=== PATIENT | male | born 1985 | race Caucasian/White ===

== ENCOUNTER 2017-02-19 18:52 | Emergency (ER) | payer SELFPAY ==
--- NOTE | 2017-02-19 20:14 | DIAGNOSTIC IMAGING REPORT ---
PROCEDURE: XR ANKLE 3 OR 4 VIEWS - LEFT INDICATION: TRAUMA/INJURY TECHNIQUE: Four views of the left ankle. COMPARISON: None. FINDINGS: Normal mineralization. No fractures. Ankle mortise intact. Normal osseous alignment. Dorsal degenerative spurring at the talonavicular articulation. No tibiotalar joint effusion. No suspicious soft-tissue calcification or radiodense foreign bodies. Achilles tendon appears grossly normal. Mild lateral soft tissue thickening. IMPRESSION: 1. Intact left ankle. 2. Mild lateral soft tissue thickening may be cellulitis. Correlate clinically.
--- NOTE | 2017-02-19 20:17 | ED ORDER SUMMARY ---
..... Patient: JERILYN AADMS [facility] VisitID: [id number] [address] [place] [address] 31y, M Registration Date/Time: 02/19/2017 ORDER SHEET Weight: 65.7 kg (stated) Allergies: None GENERAL ORDERS: Ankle 3 or 4V Left Urgent (19:46 02/19/2017 Krystal Mooney) (Ack 19:47 [facility] Log Preparer) (20:28 SRoberts R.N.) Orthopedic Boot (20:16 02/19/2017 Krystal Mooney) (Cancelled: Patient Left21:15 SRoberts R.N.) MEDICATION ORDERS: Toradol IM 60 mg (NOW) (19:45 02/19/2017 Krystal Mooney) (Ack 20:09 SRoberts R.N.) (20:28 SRoberts R.N.) IV FLUIDS: ORDER SHEET NOTES: [Electronically signed by Jesus Cardoso Dr. (20:20 02/19/2017)] [Electronically signed by Aiyana Tang R.N. (21:16 02/19/2017)] [Electronically locked/signed by Aiyana Tang R.N. (21:16 02/19/2017)]
--- NOTE | 2017-02-19 20:17 | ED ORDER SUMMARY ---
..... Patient: JERILYN ADAMS OrderSheet 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 (20:20 02/19/2017)] [Electronically signed by Aiyana Tang R.N. (21:16 02/19/2017)] [Electronically locked/signed by Aiyana Tang R.N. (21:16 02/19/2017)]
--- NOTE | 2017-02-19 20:17 | ED CLINICAL REPORT ---
Clinical Report - Physicians/Mid Levels [facility] [address] [place] [address] 02/19/2017 18:53 [id number] Time Seen: 19:07; initial patient contact. Arrived- By private vehicle. Historian- patient. HISTORY OF PRESENT ILLNESS Chief Complaint: PUNCTURE WOUND TO RIGHT FOOT. The injury happened last night. Occurred on a street. The patient sustained a puncture wound from a clean nail. He was wearing rubber-soled shoes. Patient is experiencing mild pain. No redness, swelling, drainage or fever. REVIEW OF SYSTEMS The patient sustained a laceration. He has no pain on weight bearing. No suspected foreign body. He has had moderate joint pain with swelling, involving the left ankle. PAST HISTORY Negative. Tetanus immunization status is up-to-date. Problems: no known problems. Surgeries: No history of previous surgery. Additional Surgeries: no known surgeries. Medications: None. Allergies: None. SOCIAL HISTORY Current every day smoker. No alcohol use or drug use. ADDITIONAL NOTES The nursing notes have been reviewed with agreement regarding the chief complaint, PMH and patient medications and allergies. PHYSICAL EXAM Vital Signs: 02/19/2017 19:09 BP: 122/72. HR: 94. RR: 18. O2 saturation: 99%. Temp: 97.7 F. Pain level now: 8/10. Have been reviewed as normal. Appearance: Alert. Oriented X3. No acute distress. Eyes: Eyes normal inspection. CVS: Normal heart rate and rhythm. Heart sounds normal. Respiratory: No respiratory distress. Breath sounds normal. Skin: Otherwise negative. Skin warm and dry. Extremities: Distal plantar puncture wound, right foot. No retained foreign material is visible. Mild soft-tissue tenderness present. Mild bony tenderness present in the left lateral ankle. No signs of infection present. Extremities otherwise negative. Neuro, Vascular and Tendons: Sensation intact. Motor intact. Vascular status intact. Tendon function intact. Gait: Limping gait. Neuro: Oriented X 3. LABS, X-RAYS, AND EKG Lt Ankle X-ray: No fracture. Normal alignment. No bony lesion, air in the soft tissue or foreign body. Soft tissues normal. Joint spaces normal. Views: 3 view ankle series. Technique: good. The X-rays were independently viewed by me and interpreted contemporaneously by me. Prior films were not available for comparison. Interpretation time: 20:11. PROGRESS AND PROCEDURES Disposition: Discharged in good and improved condition. Condition: good. CLINICAL IMPRESSION Single superficial plantar puncture wound to the right foot.No foreign body, infection or injury to toenail. Treatment not delayed. Sprain of the left ankle. INSTRUCTIONS Apply ice for 20 minutes four times a day. Don't apply ice directly to skin. Protect wound and keep wound area clean. Change dressing twice daily. You may wash wounds briefly, then dry. Soak in warm soapy water twice daily. Apply bacitracin twice daily. Your Current Medications: CONTINUE TAKING THE FOLLOWING MEDICATIONS: None*. Prescription Medications: Diclofenac 50 mg tablets: take 1 tablet orally every 8 hours as needed for pain or stiffness. Dispense thirty (30). No refill. Follow-up: Screening today revealed the patient's blood pressure to be in the normal range. Follow-up with: [facility], , , [address], , [place], [address] Follow up in about two days. Call for an appointment. (Electronically signed by Jesus Cardoso Dr. 02/19/2017 20:20)
--- NOTE | 2017-02-19 20:17 | ED NURSING NOTES ---
Clinical Report - Nurses [facility] [address] [place] [address] 02/19/2017 18:53 [id number] Triage time 19:07. Acuity: LEVEL 4. Chief Complaint: (RIGHT FOOT PAIN). 19:02/19/17. 19:02/19/17. Alert. No acute distress. ( Pt states he "got a gift from the other side in his right foot, the devil put something in there." Pt states he has left ankle pain.). SEPSIS SCREEN: Sepsis Screen. Negative (no infection suspected/documented). PEARL COMA SCORE: Sidon Coma Scale: 15- eyes open spontaneously (4); best verbal response- oriented x 4 (5); best motor response- obeys commands (6). --19:12 Tre Concepcion R.N. 19:02/19/17. BP: 122/72. HR: 94. RR: 18. O2 saturation: 99% on room air. Temp: 97.7 F (oral). Pain level now: 07/10. --19:12 Tre Concepcion R.N. Weight: 65.7 kg stated. Height/Length: 71 inches Per Patient. BMI: 20.2. --19:07 Tre Concepcion R.N. Medications None. --19:11 Tre Concepcion R.N. Medication/allergy information source: the patient. --19:12 Tre Concepcion R.N. Allergies None. --19:11 Tre Concepcion R.N. History Arrived by private vehicle. Historian: patient. Unaccompanied. Primary physician (NONE). 19:02/19/17. Location of injuries: right foot. ( Painful right foot, left ankle pain). 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 Trauma activation: Pre-hospital notification of patient arrival was not received. PAST MEDICAL HX: Tetanus status: unknown. Immunizations: status is unknown. SOCIAL HX: Current some days light tobacco smoker (cigarette)- less than 1/2 a pack per day. No alcohol use or drug use. No infectious disease exposure. ABUSE ASSESSMENT: No report of abuse. FALL RISK ASSESSMENT: Fall risk assessment completed. No fall risk identified. NUTRITIONAL RISK ASSESSMENT: The nutritional risk assessment revealed no deficiencies. FUNCTIONAL ASSESSMENT: Functional assessment: no impairments noted. LEARNING NEEDS ASSESSMENT: The learning needs assessment revealed no barriers. SKIN INTEGRITY ASSESSMENT: Skin integrity risk assessment completed. No skin integrity risk identified. --19:12 Tre Concepcion R.N. PROBLEMS: no known problems. ADDITIONAL SURGERIES: no known surgeries. Assessment 19:02/19/17. --19:12 Tre Concepcion R.N. Interventions 19:02/19/17. 19:02/19/17. ID and allergy band on patient. To treatment room. --19:12 Tre Concepcion R.N. PHYSICAL ASSESSMENT 19:02/19/17. Ambulatory to room. GENERAL / NEURO / PSYCH: Alert. Oriented X 4. RESPIRATORY: Respirations not labored. CVS: Capillary refill less than 2 seconds. EXTREMITIES: Left ankle: erythema. SKIN: Skin is warm and dry. --19:11 Tre Concepcion R.N. EXTREMITIES: Right foot: (small puncture wound noted on bottom of right foot). --19:13 Tre Concepcion R.N. NURSING PROGRESS NOTES 19:02/19/17. Two patient identifiers checked. Call light placed in reach. Side rails up x 2. Brakes of bed on. --19:12 Tre Concepcion R.N. 19:02/19/17. The plan of care for this patient has been created. Extremity elevated. Neuro-vascular extremity check. Reassurance given. --19:12 Tre Concepcion R.N. 19:02/19/17. Patient ready for evaluation- chart flagged. --19:12 Tre Concepcion R.N. 19:15 02/19/17. Care transferred and report given. --19:15 Tre Concepcion R.N. 20:10 02/19/2017 Toradol (Ketorolac Tromethamine) IM 60 mg given. Given in the left gluteus damon. Allergies verified and confirmed 5 rights. --20:28 Aiyana Tang R.N. DISPOSITION / DISCHARGE 20:25. Condition at departure: improved. ( Patient stated "I'm hungry". Patient given sandwich, and soda.). No learning barriers present. Discharge instructions provided and reviewed with the patient. Patient verbalized understanding. Written instructions provided in Latvian. The patient was discharged home. He left the Emergency Department ambulatory and via bus and with fare provided. Medication list reviewed and validated. --20:28 Aiyana Tang R.N. 20:21 02/19/17. BP: 116/72. HR: 79. RR: 18. O2 saturation: 100%. Temp: deferred. Pain level now: 01/10. 19:09 02/19/17. BP: 122/72. HR: 94. RR: 18. O2 saturation: 99% on room air. Temp: 97.7 F (oral). Pain level now: 8/10. --20:28 Aiyana Tang R.N. Locked/Released at 02/19/2017 21:16 by Aiyana Tang R.N.
--- NOTE | 2017-02-19 20:17 | ED NURSING NOTES ---
Clinical Report - Nurses [facility] [address] [place] [address] 02/19/2017 18:53 [id number] TRI[facility] Triage time 19:07. Acuity: LEVEL 4. Chief Complaint: (RIGHT FOOT PAIN). 19:02/19/17. 19:02/19/17. Alert. No acute distress. ( Pt states he "got a gift from the other side in his right foot, the devil put something in there." Pt states he has left ankle pain.). SEPSIS SCREEN: Sepsis Screen. Negative (no infection suspected/documented). PEARL COMA SCORE: Lambert Coma Scale: 15- eyes open spontaneously (4); best verbal response- oriented x 4 (5); best motor response- obeys commands (6). --19:12 Tre Concepcion R.N. 19:02/19/17. BP: 122/72. HR: 94. RR: 18. O2 saturation: 99% on room air. Temp: 97.7 F (oral). Pain level now: 07/10. --19:12 Tre Concepcion R.N. Weight: 65.7 kg stated. Height/Length: 71 inches Per Patient. BMI: 20.2. --19:07 Tre Concepcion R.N. Medications None. --19:11 Tre Concepcion R.N. Medication/allergy information source: the patient. --19:12 Tre Concepcion R.N. Allergies None. --19:11 Tre Concepcion R.N. History Arrived by private vehicle. Historian: patient. Unaccompanied. Primary physician (NONE). 19:02/19/17. Location of injuries: right foot. ( Painful right foot, left ankle pain). 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 Trauma activation: Pre-hospital notification of patient arrival was not received. PAST MEDICAL HX: Tetanus status: unknown. Immunizations: status is unknown. SOCIAL HX: Current some days light tobacco smoker (cigarette)- less than 1/2 a pack per day. No alcohol use or drug use. No infectious disease exposure. ABUSE ASSESSMENT: No report of abuse. FALL RISK ASSESSMENT: Fall risk assessment completed. No fall risk identified. NUTRITIONAL RISK ASSESSMENT: The nutritional risk assessment revealed no deficiencies. FUNCTIONAL ASSESSMENT: Functional assessment: no impairments noted. LEARNING NEEDS ASSESSMENT: The learning needs assessment revealed no barriers. SKIN INTEGRITY ASSESSMENT: Skin integrity risk assessment completed. No skin integrity risk identified. --19:12 Tre Concepcion R.N. PROBLEMS: no known problems. ADDITIONAL SURGERIES: no known surgeries. Assessment 19:02/19/17. --19:12 Tre Concepcion R.N. Interventions 19:02/19/17. 19:02/19/17. ID and allergy band on patient. To treatment room. --19:12 Tre Concepcion R.N. PHYSICAL ASSESSMENT 19:02/19/17. Ambulatory to room. GENERAL / NEURO / PSYCH: Alert. Oriented X 4. RESPIRATORY: Respirations not labored. CVS: Capillary refill less than 2 seconds. EXTREMITIES: Left ankle: erythema. SKIN: Skin is warm and dry. --19:11 Tre Concepcion R.N. EXTREMITIES: Right foot: (small puncture wound noted on bottom of right foot). --19:13 Tre Concepcion R.N. NURSING PROGRESS NOTES 19:02/19/17. Two patient identifiers checked. Call light placed in reach. Side rails up x 2. Brakes of bed on. --19:12 Tre Concepcion R.N. 19:02/19/17. The plan of care for this patient has been created. Extremity elevated. Neuro-vascular extremity check. Reassurance given. --19:12 Tre Concepcion R.N. 19:02/19/17. Patient ready for evaluation- chart flagged. --19:12 Tre Concepcion R.N. 19:15 02/19/17. Care transferred and report given. --19:15 Tre Concepcion R.N. 20:10 02/19/2017 Toradol (Ketorolac Tromethamine) IM 60 mg given. Given in the left gluteus damon. Allergies verified and confirmed 5 rights. --20:28 Aiyana Tang R.N. DISPOSITION / DISCHARGE 20:25. Condition at departure: improved. ( Patient stated "I'm hungry". Patient given sandwich, and soda.). No learning barriers present. Discharge instructions provided and reviewed with the patient. Patient verbalized understanding. Written instructions provided in Romansh. The patient was discharged home. He left the Emergency Department ambulatory and via bus and with fare provided. Medication list reviewed and validated. --20:28 Aiyana Tnag R.N. 20:21 02/19/17. BP: 116/72. HR: 79. RR: 18. O2 saturation: 100%. Temp: deferred. Pain level now: 01/10. 19:09 02/19/17. BP: 122/72. HR: 94. RR: 18. O2 saturation: 99% on room air. Temp: 97.7 F (oral). Pain level now: 8/10. --20:28 Aiyana Tang R.N. Locked/Released at 02/19/2017 21:16 by Aiyana Tang R.N.
--- NOTE | 2017-02-19 20:17 | ED CLINICAL REPORT ---
Clinical Report - Physicians/Mid Levels [facility] [address] [place] [place] [address] 02/19/2017 18:53 [id number] Time Seen: 19:07; initial patient contact. Arrived- By private vehicle. Historian- patient. HISTORY OF PRESENT ILLNESS Chief Complaint: PUNCTURE WOUND TO RIGHT FOOT. The injury happened last night. Occurred on a street. The patient sustained a puncture wound from a clean nail. He was wearing rubber-soled shoes. Patient is experiencing mild pain. No redness, swelling, drainage or fever. REVIEW OF SYSTEMS The patient sustained a laceration. He has no pain on weight bearing. No suspected foreign body. He has had moderate joint pain with swelling, involving the left ankle. PAST HISTORY Negative. Tetanus immunization status is up-to-date. Problems: no known problems. Surgeries: No history of previous surgery. Additional Surgeries: no known surgeries. Medications: None. Allergies: None. SOCIAL HISTORY Current every day smoker. No alcohol use or drug use. ADDITIONAL NOTES The nursing notes have been reviewed with agreement regarding the chief complaint, PMH and patient medications and allergies. PHYSICAL EXAM Vital Signs: 02/19/2017 19:09 BP: 122/72. HR: 94. RR: 18. O2 saturation: 99%. Temp: 97.7 F. Pain level now: 8/10. Have been reviewed as normal. Appearance: Alert. Oriented X3. No acute distress. Eyes: Eyes normal inspection. CVS: Normal heart rate and rhythm. Heart sounds normal. Respiratory: No respiratory distress. Breath sounds normal. Skin: Otherwise negative. Skin warm and dry. Extremities: Distal plantar puncture wound, right foot. No retained foreign material is visible. Mild soft-tissue tenderness present. Mild bony tenderness present in the left lateral ankle. No signs of infection present. Extremities otherwise negative. Neuro, Vascular and Tendons: Sensation intact. Motor intact. Vascular status intact. Tendon function intact. Gait: Limping gait. Neuro: Oriented X 3. LABS, X-RAYS, AND EKG Lt Ankle X-ray: No fracture. Normal alignment. No bony lesion, air in the soft tissue or foreign body. Soft tissues normal. Joint spaces normal. Views: 3 view ankle series. Technique: good. The X-rays were independently viewed by me and interpreted contemporaneously by me. Prior films were not available for comparison. Interpretation time: 20:11. PROGRESS AND PROCEDURES Disposition: Discharged in good and improved condition. Condition: good. CLINICAL IMPRESSION Single superficial plantar puncture wound to the right foot.No foreign body, infection or injury to toenail. Treatment not delayed. Sprain of the left ankle. INSTRUCTIONS Apply ice for 20 minutes four times a day. Don't apply ice directly to skin. Protect wound and keep wound area clean. Change dressing twice daily. You may wash wounds briefly, then dry. Soak in warm soapy water twice daily. Apply bacitracin twice daily. Your Current Medications: CONTINUE TAKING THE FOLLOWING MEDICATIONS: None*. Prescription Medications: Diclofenac 50 mg tablets: take 1 tablet orally every 8 hours as needed for pain or stiffness. Dispense thirty (30). No refill. Follow-up: Screening today revealed the patient's blood pressure to be in the normal range. Follow-up with: [facility], , , [address], , [place], [address] Follow up in about two days. Call for an appointment. (Electronically signed by Jesus Cardoso Dr. 02/19/2017 20:20)
--- NOTE | 2017-02-19 21:17 | ED DISCHARGE INSTRUCTIONS ---
Patient: JERILYN ADAMS General Instructions [facility] VisitID: [id number] [address] [place] [address] 31y, M Registration Date/Time: 02/19/2017 Single superficial plantar puncture wound to the right foot.No foreign body, infection or injury to toenail. Treatment not delayed. Sprain of the left ankle. INSTRUCTIONS Apply ice for 20 minutes four times a day. Don't apply ice directly to skin. Protect wound and keep wound area clean. Change dressing twice daily. You may wash wounds briefly, then dry. Soak in warm soapy water twice daily. Apply bacitracin twice daily. Your Current Medications: CONTINUE TAKING THE FOLLOWING MEDICATIONS: None*. Prescription Medications: Diclofenac 50 mg tablets: take 1 tablet orally every 8 hours as needed for pain or stiffness. Dispense thirty (30). No refill. Follow-up: Screening today revealed the patient's blood pressure to be in the normal range. Follow-up with: [facility], , , [address], [facility], [id number] Follow up in about two days. Call for an appointment. ADDITIONAL INFORMATION Puncture Wound: Foot A puncture is a hole through the skin. Bacteria, dirt, and debris can be drawn into this wound, increasing the risk of infection. Antibiotics are usually not prescribed for this injury unless signs of infection are already present. Therefore, it is important to observe the wound closely for the signs of infection listed below. If you were wearing a rubber-soled shoe when the sharp object punctured your foot, there is a chance that bacteria (called "pseudomonas") from the sole of the shoe may be dragged into the wound and infect the skin, tendon or bone. This infection may start as late as 2-3 weeks after the injury. It is more serious and harder to treat than the common staph and strep skin infections, so follow the advice below. Home Care: Keep the foot raised during the first 24-48 hours to reduce swelling and pain. DO NOT BEAR WEIGHT on the injured foot if it hurts to do so. You may use acetaminophen (Tylenol) or ibuprofen (Motrin, Advil) to control pain, unless another medicine was prescribed. [NOTE: If you have chronic liver or kidney disease or ever had a stomach ulcer or GI bleeding, talk with your doctor before using these medicines.] You may shower as usual, but do not soak the wound in water (no baths or swimming) until the wound seals and there is no more drainage or bleeding. Keep the wound clean and dry. If a bandage was applied and it becomes wet or dirty, replace it. Otherwise, keep the wound covered until there is no more drainage or bleeding. Follow Up: Most puncture wounds heal within 10 days. However, an infection may sometimes occur despite proper treatment. If small particles were drawn into the puncture wound (such as fragments of cloth, rubber, wood or dirt), an infection may occur. These fragments are very hard to find during the first exam since it is not possible to get a good look inside a puncture wound and they do not show on an X-ray. Antibiotics and a minor surgical procedure to find and remove the foreign object will be needed if this happens. Over the next 2-3 weeks, check the wound daily for the warning signs listed below. If you are still having swelling or pain in the foot after two weeks, you should contact your doctor or return to this facility for an x-ray to look for an infection in the bone. [NOTE: Any X-rays taken will be reviewed by a radiologist. You will be notified of any new findings that may affect your care.] Get Prompt Medical Attention if any of the following occur: Increasing pain Foot becomes cold, blue, numb, or tingly Fever of 100.4F (38C) or higher, or as directed by your healthcare provider Redness, warmth, swelling or drainage from the wound Pain or swelling that lasts for two weeks Sprain, Ankle,With X-Ray A sprain is an injury to the ligaments or capsule that holds a joint together. There are no broken bones. Most sprains take from four to six weeks to heal. If the ligament is completely torn (severe sprain), it can take several months to recover. Mild to moderate sprains may be treated with an elastic wrap or an in-shoe splint to provide support and prevent re-injury. A mild sprain may not require any additional support. A severe sprain may require surgery to repair. Home care The following guidelines will help you care for your injury at home: Stay off the injured leg as much as possible until you can walk on it without pain. If you have a lot of pain with walking, crutches or a walker may be prescribed. (These can be rented or purchased at many pharmacies and surgical or orthopedic supply stores). Follow your doctor's advice regarding when to begin bearing weight on that leg. Keep your leg elevated to reduce pain and swelling. When sleeping, place a pillow under the injured leg. When sitting, support the injured leg so it is level with your waist. This is very important during the first 48 hours. Apply an ice pack (ice cubes in a plastic bag, wrapped in a towel) over the injured area for 20 minutes every 12 hours the first day. You can place the ice pack directly over the splint/cast. If you were given a boot, open it to apply the ice pack. Continue with ice packs 34 times a day for the next two days, then as needed for the relief of pain and swelling. You may use acetaminophen or ibuprofen to control pain, unless another pain medicine was prescribed. If you have chronic liver or kidney disease or ever had a stomach ulcer or GI bleeding, talk with your doctor before using these medicines. You may return to sports after healing, when you can run without pain. A sprained ankle is at risk for re-injury during the first six weeks. During that time, protect your ankle with an in-shoe splint that prevents tilting of your ankle from side to side. This is very important if you do active work or play sports during that time. Follow-up care Any X-rays you had today dont show any broken bones, breaks, or fractures. Sometimes fractures dont show up on the first X-ray. Bruises and sprains can sometimes hurt as much as a fracture. These injuries can take time to heal completely. If your symptoms dont improve or they get worse, talk with your doctor. You may need a repeat X-ray. When to seek medical care Get prompt medical attention if any of the following occur: The plaster cast or splint gets wet or soft The fiberglass cast or splint gets wet and does not dry for 24 hours Pain or swelling increases, or redness appears Toes become cold, blue, numb or tingly Re-injure your ankle Puncture Wound (General) A puncture wound is a hole through the skin. Bacteria, dirt and debris can be drawn into this wound, increasing the risk of infection. However, antibiotics are usually not prescribed for this injury unless signs of infection are already present. Therefore, it is important to observe the wound closely for the signs of infection listed below. Home Care: If your wound is on an arm, hand, leg, or foot, keep that part raised during the first 48 hours to reduce swelling and pain. Keep the wound clean and dry. If a bandage was applied and it becomes wet or dirty, replace it. Otherwise, leave it in place for the next 24 hours. You may use acetaminophen (Tylenol) or ibuprofen (Motrin, Advil) to control pain, unless another medicine was prescribed. [NOTE: If you have chronic liver or kidney disease or ever had a stomach ulcer or GI bleeding, talk with your doctor before using these medicines.] You may shower as usual. However, do not soak the area in water (no baths or swimming) during the first 48 hours. Follow Up: Most puncture wounds heal within 10 days. However, an infection may sometimes occur despite proper treatment. If small particles were drawn into the puncture wound (such as fragments of cloth, rubber, wood or dirt), an infection may occur. These fragments are very hard to find during the first exam since it is not possible to get a good look inside a puncture wound and they do not show on an X-ray. Antibiotics and a minor surgical procedure to find and remove the foreign object will be needed if this happens. Therefore, check the wound daily for the warning signs listed below. Get Prompt Medical Attention if any of the following occur: SIGNS OF INFECTION: Increasing pain in the wound Redness, swelling, pus or red lines coming from the wound Fever of 100.4F (38C) or higher, or as directed by your healthcare provider Puncture Wound: Foot A puncture is a hole through the skin. Bacteria, dirt, and debris can be drawn into this wound, increasing the risk of infection. Antibiotics are usually not prescribed for this injury unless signs of infection are already present. Therefore, it is important to observe the wound closely for the signs of infection listed below. If you were wearing a rubber-soled shoe when the sharp object punctured your foot, there is a chance that bacteria (called "pseudomonas") from the sole of the shoe may be dragged into the wound and infect the skin, tendon or bone. This infection may start as late as 2-3 weeks after the injury. It is more serious and harder to treat than the common staph and strep skin infections, so follow the advice below. Home Care: Keep the foot raised during the first 24-48 hours to reduce swelling and pain. DO NOT BEAR WEIGHT on the injured foot if it hurts to do so. You may use acetaminophen (Tylenol) or ibuprofen (Motrin, Advil) to control pain, unless another medicine was prescribed. [NOTE: If you have chronic liver or kidney disease or ever had a stomach ulcer or GI bleeding, talk with your doctor before using these medicines.] You may shower as usual, but do not soak the wound in water (no baths or swimming) until the wound seals and there is no more drainage or bleeding. Keep the wound clean and dry. If a bandage was applied and it becomes wet or dirty, replace it. Otherwise, keep the wound covered until there is no more drainage or bleeding. Follow Up: Most puncture wounds heal within 10 days. However, an infection may sometimes occur despite proper treatment. If small particles were drawn into the puncture wound (such as fragments of cloth, rubber, wood or dirt), an infection may occur. These fragments are very hard to find during the first exam since it is not possible to get a good look inside a puncture wound and they do not show on an X-ray. Antibiotics and a minor surgical procedure to find and remove the foreign object will be needed if this happens. Over the next 2-3 weeks, check the wound daily for the warning signs listed below. If you are still having swelling or pain in the foot after two weeks, you should contact your doctor or return to this facility for an x-ray to look for an infection in the bone. [NOTE: Any X-rays taken will be reviewed by a radiologist. You will be notified of any new findings that may affect your care.] Get Prompt Medical Attention if any of the following occur: Increasing pain Foot becomes cold, blue, numb, or tingly Fever of 100.4F (38C) or higher, or as directed by your healthcare provider Redness, warmth, swelling or drainage from the wound Pain or swelling that lasts for two weeks You have been given the following additional information: Puncture Wound, Foot Sprain, Ankle, With X-Ray Puncture Wound, General Puncture Wound, Foot (Electronically signed by Jesus Cardoso Dr. 02/19/2017 20:20)
--- NOTE | 2017-02-19 21:17 | ED MAR SUMMARY ---
..... Medication Administration Record [facility] [address] [place] [address] Patient: JERILYN ADAMS Visit ID: [id number] 31y, M Weight: 65.7 kg Height/Length: 71 in BMI: 20.2 ALLERGIES: None Given 20:10 02/19/2017 Aiyana Tang R.N. Medication Administered: TORADOL [IM] (KETOROLAC TROMETHAMINE), Dose: 60 mg IM. Medication Ordered: Toradol IM 60 mg (NOW).
--- NOTE | 2017-02-19 21:17 | ED MED RECONCILIATION SUMMARY ---
Patient: JERILYN ADAMS Medication Reconciliation Report [facility] VisitID: [id number] [address] [place] [address] 31y, M Registration Date/Time: 02/19/2017 Weight: 65.7 kg Height/Length: 71 in. BMI: 20.2 ALLERGIES: None The patient's Home Medications are listed below: NONE. The source(s) of the original Home Medication information: patient The following Medications were given to the patient in the Emergency Department: Toradol [IM] IM 60 mg, administered: 02/19/2017 8:10:00 PM The following Medications were prescribed to the patient: Diclofenac 50 mg tablets: take 1 tablet orally every 8 hours as needed for pain or stiffness. Dispense thirty (30). No refill. -- Jesus Cardoso Dr.
--- NOTE | 2017-02-19 21:17 | ED MAR SUMMARY ---
..... Medication Administration Record [facility] [address] [place] [address] Patient: JERILYN ADAMS Visit ID: [id number] 31y, M Weight: 65.7 kg Height/Length: 71 in BMI: 20.2 ALLERGIES: None Given 20:10 02/19/2017 Aiyana Tang R.N. Medication Administered: TORADOL [IM] (KETOROLAC TROMETHAMINE), Dose: 60 mg IM. Medication Ordered: Toradol IM 60 mg (NOW).
--- NOTE | 2017-02-19 21:17 | ED MED RECONCILIATION SUMMARY ---
Patient: JERILYN ADAMS Medication Reconciliation Report [facility] VisitID: [id number] [address] [place] [address] 31y, M Registration Date/Time: 02/19/2017 Weight: 65.7 kg Height/Length: 71 in. BMI: 20.2 ALLERGIES: None The patient's Home Medications are listed below: NONE. The source(s) of the original Home Medication information: patient The following Medications were given to the patient in the Emergency Department: Toradol [IM] IM 60 mg, administered: 02/19/2017 8:10:00 PM The following Medications were prescribed to the patient: Diclofenac 50 mg tablets: take 1 tablet orally every 8 hours as needed for pain or stiffness. Dispense thirty (30). No refill. -- Jesus Cardoso Dr.
== END 2017-02-19 20:25 | disposition home or self-care (01) ==
LOC: ED SRH 18:52
DX: S91.331A Puncture wound without foreign body, right foot, initial encounter (principal); S93.402A Sprain of unspecified ligament of left ankle, initial encounter; W45.0XXA Nail entering through skin, initial encounter; Y99.9 Unspecified external cause status; Y93.9 Activity, unspecified; Y92.410 Unspecified street and highway as the place of occurrence of the external cause; F17.200 Nicotine dependence, unspecified, uncomplicated